=== PATIENT | male | born 1990 | race Caucasian/White ===

== ENCOUNTER 2020-12-05 18:14 | Emergency (ER) | payer OTHER ==
[~2020-12-05] VITALS: Ht 172.7 cm; Wt 106.8 kg
[2020-12-05 19:36] VITALS: BP 123/72
--- NOTE | 2020-12-05 19:44 | NUR ---
Lab bedside for ordered draw. Patient refused labs stating it "made him nauseous" to have labwork done. PER Good informed. Patient declines labs and discharge paperwork is pending now.
== END 2020-12-06 06:50 | disposition home or self-care (01) ==
LOC: ER 18:15
DX: M79.662 Pain in left lower leg (principal); M79.661 Pain in right lower leg
CPT/HCPCS: 99283

== ENCOUNTER 2020-12-08 13:10 | Emergency (ER) | payer OTHER ==
[~2020-12-08] VITALS: Ht 172.7 cm; Wt 120.0 kg
== END 2020-12-08 15:19 | disposition home or self-care (01) ==
LOC: ER 13:11
DX: S62.664A Nondisplaced fracture of distal phalanx of right ring finger, initial encounter for closed fracture (principal); X58.XXXA Exposure to other specified factors, initial encounter; Y93.89 Activity, other specified; Y92.89 Other specified places as the place of occurrence of the external cause; Y99.8 Other external cause status
CPT/HCPCS: 29130; 73140; 99283

== ENCOUNTER 2020-12-16 06:21 | Emergency (ER) | payer MEDICAID ==
[~2020-12-16] VITALS: Ht 172.7 cm; Wt 111.4 kg
--- NOTE | 2020-12-16 06:57 | NUR ---
Cold compress applied to eyes per FAISAL Haji.
--- NOTE | 2020-12-16 07:33 | NUR ---
Pts orbital edema decreasing and able to open eyes since application of cold compress.
[2020-12-16] MEDS ORDERED: normal saline 1000ML IV soln IVB ONE (07:55)
[2020-12-16] MEDS ORDERED: triamcinolone acetonide 40mg/ml inj IM ONE (07:55)
[2020-12-16 09:34] VITALS: BP 112/71
== END 2020-12-16 09:41 | disposition home or self-care (01) ==
LOC: ER 06:22
DX: L25.9 Unspecified contact dermatitis, unspecified cause (principal); Z59.0 Homelessness; Z56.0 Unemployment, unspecified
CPT/HCPCS: 96360; 96372; 99283; J3301; J7030

== ENCOUNTER 2020-12-21 12:01 | Emergency (ER) | payer MEDICAID ==
[~2020-12-21] VITALS: Ht 172.7 cm; Wt 109.0 kg
[~2020-12-21 12:01] MED LIST: HYDR-3686 PO; PERM60CR4 TOP
[2020-12-21 12:26] VITALS: BP 154/111
== END 2020-12-21 14:39 | disposition home or self-care (01) ==
LOC: ER 12:01
DX: B86 Scabies (principal); Z59.0 Homelessness; Z56.0 Unemployment, unspecified; Z79.899 Other long term (current) drug therapy
CPT/HCPCS: 99283

== ENCOUNTER 2020-12-22 20:49 | Emergency (ER) | payer MEDICAID ==
[~2020-12-22] VITALS: Ht 172.7 cm; Wt 109.1 kg
[2020-12-22 21:10] VITALS: BP 150/95
--- NOTE | 2020-12-22 21:24 | NUR ---
PT DECIDED TO STEP OUT OF ROOM INTO HALLWAY AND BEGAN YELLING "YOU MIGHT BE OKAY WITH THIS CURTIS TALKING TO HIMSELF BUT I DONT WANT TO BE LISTENING TO A NIGGER TALKING TO HIMSELF. FUCK THIS PLACE IM GOING TO A NEW ROOM FUCK THIS NIGGER." PT WAS UNABLE TO BE REDIRECTED TO HIS ROOM AND HE ATTEMPTED TO ENTER THE OTHER PT ROOM AND WAS YELLING AT OTHER PT FACE. SECURITY CALLED AND PT WAS ESCORTED OUT OF ED. PT CONTINUED YELLING "IM NOT A RACIST. FUCK THIS AND FUCK THAT NIGGER." HISTOLOGY MANAGER ADEOLA AWARE OF SITUATION
== END 2020-12-22 21:36 | disposition left against medical advice (07) ==
LOC: ER 20:49
DX: M79.605 Pain in left leg (principal); M79.604 Pain in right leg; Z53.21 Procedure and treatment not carried out due to patient leaving prior to being seen by health care provider

== ENCOUNTER 2020-12-23 17:45 | Emergency (ER) | payer MEDICAID ==
[~2020-12-23] VITALS: Ht 172.7 cm; Wt 109.1 kg
[2020-12-23 17:52] VITALS: BP 132/96
== END 2020-12-23 19:10 | disposition home or self-care (01) ==
LOC: ER 17:47
DX: B86 Scabies (principal); Z59.0 Homelessness; Z56.0 Unemployment, unspecified; Z79.899 Other long term (current) drug therapy
CPT/HCPCS: 99281

== ENCOUNTER 2021-03-25 13:35 | Emergency (ER) | payer SELFPAY ==
[~2021-03-25] VITALS: Ht 172.7 cm; Wt 115.6 kg
[~2021-03-25 13:35] MED LIST changes: -HYDR-3686 PO
[2021-03-25 13:55] VITALS: BP 126/83
== END 2021-03-25 17:55 | disposition left against medical advice (07) ==
LOC: ER 13:35
DX: M79.644 Pain in right finger(s) (principal); Z53.21 Procedure and treatment not carried out due to patient leaving prior to being seen by health care provider

== ENCOUNTER 2024-12-09 15:24 | Inpatient (IN) | payer MEDICAID, OTHER ==
[~2024-12-09] VITALS: Ht 170.2 cm; Wt 111.3 kg
[2024-12-10 10:27] VITALS: BP 123/73; PULSE 108; RESP 18; TEMP 98; O2SAT 97
[2024-12-10] MEDS ORDERED: ARIP5TAB12 PO (11:42)
[2024-12-10] MEDS ORDERED: acetaminophen 325mg tablet PO PRN ×2 (11:45)
[2024-12-10] MEDS ORDERED: mag hydrox/Alum hydrox/simeth 30ml oral suspension PO PRN (11:45)
[2024-12-10] MEDS ORDERED: magnesium hydroxide 30ml (MOM) UD suspension PO PRN (11:45)
[2024-12-10] MEDS ORDERED: loperamide 2mg capsule PO PRN (11:45)
[2024-12-10 11:48] VITALS: RESP 18; O2SAT 97
[2024-12-10] MEDS ORDERED: hydrOXYzine 25 MG tablet PO PRN (17:15)
[2024-12-10 19:00] VITALS: RESP 14; O2SAT 96
[2024-12-10 19:21] VITALS: BP 115/71; PULSE 75; RESP 12; TEMP 98.2; O2SAT 96
[2024-12-10] MEDS: aripiprazole 5mg tablet PO SCH (20:31)
[2024-12-10] MEDS: traZODone 50mg tablet PO SCH (20:31)
[2024-12-11 07:37] VITALS: BP 117/65; PULSE 66; RESP 14; TEMP 98.8; O2SAT 98
[2024-12-11 09:08] VITALS: RESP 14; O2SAT 98
[2024-12-11 19:00] VITALS: RESP 20; O2SAT 96
[2024-12-11 20:00] VITALS: BP 114/68; PULSE 69; RESP 20; TEMP 98.4; O2SAT 96
[2024-12-11] MEDS: aripiprazole 5mg tablet PO SCH (20:06)
[2024-12-12 07:30] VITALS: BP 114/68; PULSE 71; RESP 16; TEMP 97.9; O2SAT 96
[2024-12-12 19:00] VITALS: RESP 15; O2SAT 97
[2024-12-12 19:20] VITALS: BP 114/69; PULSE 72; RESP 15; TEMP 98.8; O2SAT 97
[2024-12-12] MEDS: aripiprazole 5mg tablet PO SCH (21:35)
[2024-12-13 07:30] VITALS: BP 119/71; PULSE 60; RESP 16; TEMP 97.6; O2SAT 97; O2SAT 99
[2024-12-13 19:06] VITALS: BP 116/72; PULSE 71; RESP 18; TEMP 98.1; O2SAT 97
[2024-12-13 20:00] VITALS: RESP 18; O2SAT 97
[2024-12-14 07:00] VITALS: BP 129/87; PULSE 96; RESP 16; TEMP 97.1; O2SAT 97
[2024-12-14] MEDS ORDERED: aripiprazole 400mg suspension ER syringe IM ONE (14:00)
[2024-12-14 19:00] VITALS: RESP 18; O2SAT 95
[2024-12-14 19:36] VITALS: BP 121/74; PULSE 72; RESP 18; TEMP 97.8; O2SAT 95
[2024-12-15 07:00] VITALS: RESP 17; O2SAT 96
[2024-12-15 07:38] VITALS: BP 101/62; PULSE 69; RESP 17; TEMP 98.3; O2SAT 96
[2024-12-15 19:00] VITALS: RESP 16; O2SAT 76
[2024-12-15 20:00] VITALS: BP 121/76; PULSE 76; RESP 16; TEMP 98; O2SAT 96
[2024-12-16 07:30] VITALS: BP 119/76; PULSE 90; RESP 16; TEMP 98.4; O2SAT 97
[2024-12-16 08:52] VITALS: RESP 16; O2SAT 97
[2024-12-16] MEDS: ARIPIPRAZOLE IM ONE (12:55)
[2024-12-16 19:00] VITALS: RESP 18; O2SAT 98
[2024-12-16 19:58] VITALS: BP 102/69; PULSE 80; RESP 18; TEMP 98.5; O2SAT 98
[2024-12-17 07:30] VITALS: BP 116/70; PULSE 100; RESP 14; TEMP 98.5; O2SAT 93
[2024-12-17 19:00] VITALS: RESP 15; O2SAT 95
[2024-12-17 19:32] VITALS: BP 136/83; PULSE 104; RESP 15; TEMP 98.4; O2SAT 95
[2024-12-18 07:30] VITALS: BP 113/79; PULSE 85; RESP 18; TEMP 98.3; O2SAT 96
[2024-12-18] MEDS ORDERED: ARIP5TAB53 PO (13:21)
[2024-12-18] MEDS ORDERED: ARIPIPRAZOLE IM ONE (16:55)
[2024-12-18 19:00] VITALS: RESP 16; O2SAT 97
[2024-12-18 20:00] VITALS: BP 119/83; PULSE 79; RESP 16; TEMP 98.5; O2SAT 97
[2024-12-19 07:30] VITALS: BP 125/78; PULSE 92; RESP 16; TEMP 97.5; O2SAT 96
== END 2024-12-19 16:01 | disposition home or self-care (01) | DRG 750 ==
LOC: ADULT MH 12-10 10:28
PROVIDERS: ADMIT Psychiatry & Neurology Psychiatry; ATTEND Psychiatry & Neurology Psychiatry
PROC: GZHZZZZ Group Psychotherapy (ICD-10-PCS; principal; 2024-12-10)
PROC: GZ51ZZZ Individual Psychotherapy, Behavioral (ICD-10-PCS; 2024-12-10)
DX: F20.9 Schizophrenia, unspecified (principal); R45.851 Suicidal ideations; Z91.148 Patient's other noncompliance with medication regimen for other reason; F32.A Depression, unspecified; F41.9 Anxiety disorder, unspecified; Z59.00 Homelessness unspecified
CPT/HCPCS: 87081

== ENCOUNTER 2025-01-21 05:40 | Emergency (ER) | payer MEDICAID ==
[~2025-01-21] VITALS: Ht 172.7 cm; Wt 90.9 kg
[~2025-01-21 05:40] MED LIST changes: +ARIP5TAB53 PO; -PERM60CR4 TOP
[2025-01-21] MEDS ORDERED: PERM60CR4 TOP (06:55)
[2025-01-21 07:11] VITALS: BP 110/78; PULSE 72; RESP 16; TEMP 97.8; O2SAT 97
== END 2025-01-21 07:13 | disposition home or self-care (01) ==
LOC: ER 05:41
DX: B86 Scabies (principal); F20.9 Schizophrenia, unspecified
CPT/HCPCS: 99282

== ENCOUNTER 2025-02-09 09:49 | Emergency (ER) | payer MEDICAID ==
[~2025-02-09] VITALS: Ht 167.6 cm; Wt 113.8 kg
[~2025-02-09 09:49] MED LIST changes: +PERM60CR4 TOP
[2025-02-09 09:56] VITALS: TEMP 98.4
[2025-02-09 12:28] LABS: BASOPHILS # (AUTO) 0.1 X10'3 (0-0.2); BASOPHILS % (AUTO) 0.8 % (0-1); EOSINOPHILS # (AUTO) 0.1 X10'3 (0-0.9); EOSINOPHILS % (AUTO) 1.3 % (0-6); HEMATOCRIT 43.7 % (42.0-52.0); HEMOGLOBIN 15.2 g/dl (14.0-17.9); LYMPHOCYTES # (AUTO) 1.9 X10'3 (1.1-4.8); MEAN CORPUSCULAR HEMOGLOBIN 30.3 PG (27.0-31.0); MEAN CORPUSCULAR HGB CONC 34.7 g/dL (33.0-36.5); MEAN CORPUSCULAR VOLUME 87.3 FL (78-98); MEAN PLATELET VOLUME 10.1 FL (7.4-10.4); MONOCYTES # (AUTO) 0.4 X10'3 (0-0.9); MONOCYTES % (AUTO) 6.2 % (2-12); NEUTROPHILS # (AUTO) 4.5 X10'3 (1.8-7.7); NEUTROPHILS % (AUTO) 64.7 % (42-75); PLATELET COUNT 198 X10'3 (140-440); RED CELL DISTRIBUTION WIDTH 13.3 % (11.5-14.5)
[2025-02-09 12:43] LABS: ALBUMIN 3.8 G/DL (3.4-5.0); ANION GAP 7 (8-16); BLOOD UREA NITROGEN 12 MG/DL (7-18); CALCIUM 8.9 MG/DL (8.5-10.1); CHLORIDE 107 MMOL/L (99-107); ETHANOL < 10 MG/DL (<10); GLUCOSE 119 MG/DL (70-104); POTASSIUM 3.7 MMOL/L (3.5-5.1); SODIUM 143 MMOL/L (135-145); THYROID STIMULATING HORMONE 1.75 ulU/ml (0.34-4.50); eCRCL 119 ML/MIN; eGFR > 90 ML/MIN
[2025-02-09 13:36] LABS: BILIRUBIN,URINE NEGATIVE (Neg); CLARITY,URINE CLEAR (Clear); COLOR,URINE YELLOW (Yellow); GLUCOSE, URINE NEGATIVE (Neg); KETONES,URINE NEGATIVE (Neg); LEUKOCYTE ESTERASE ,URINE NEGATIVE (Neg); NITRITES, URINE NEGATIVE (Neg); OCCULT BLOOD,URINE NEGATIVE (Neg); PROTEIN,URINE NEGATIVE (Neg); UROBILINOGEN,URINE 0.2 E.U/dL (0.2-1.0)
[2025-02-09 13:37] LABS: UA COLLECTION TYPE CLN CATCH MIDSTREAM
[2025-02-09 13:43] LABS: URINE AMPHETAMINE SCREEN NEGATIVE (Neg); URINE BARBITUATE SCREEN NEGATIVE (Neg); URINE BENZODIAZEPINES SCREEN NEGATIVE (Neg); URINE CANNABINOID SCREEN NEGATIVE (Neg); URINE COCAINE SCREEN NEGATIVE (Neg); URINE METHADONE SCREEN NEGATIVE (Neg); URINE OPIATE SCREEN NEGATIVE (Neg); URINE PHENCYCLIDINE SCREEN NEGATIVE (Neg)
[2025-02-09] MEDS: aripiprazole 400mg suspension ER syringe IM STA (13:45)
[2025-02-09 15:10] VITALS: BP 135/84; PULSE 86; RESP 16; O2SAT 98
== END 2025-02-09 15:10 | disposition home or self-care (01) ==
LOC: ER 09:50
DX: F20.9 Schizophrenia, unspecified (principal); R45.851 Suicidal ideations; Z59.00 Homelessness unspecified; Z20.822 Contact with and (suspected) exposure to COVID-19
CPT/HCPCS: 36415; 80048; 80305; 80320; 81003; 84443; 85025; 87811; 96372; 99284

== ENCOUNTER 2025-02-27 08:39 | Emergency (ER) | payer MEDICAID ==
[~2025-02-27] VITALS: Ht 167.6 cm; Wt 113.7 kg
[2025-02-27 08:40] VITALS: BP 121/70; PULSE 85; TEMP 98.2; O2SAT 98
[2025-02-27 08:51] VITALS: RESP 18
--- NOTE | 2025-02-27 09:18 | Physician Documentation ---
History of Present Illness ~ Chief Complaint: Suicidal Ideation Stated Complaint: Time Seen by MD: 08:55 Primary Medical Doctor: NONE Mode of Arrival: POV HPI This 34-year-old male with history schizophrenia presents due to suicidal thoughts without a plan or intention on acting on these feelings, patient reports that he normally has an Abilify injection monthly however he does not know when his last injection was and believes he is overdue. Medication Reconciliation Allergies: Coded Allergies: No Known Allergies (Unverified , 02/09/25) Scheduled Aripiprazole (Aripiprazole), 15 MG PO HS Permethrin (Permethrin), 1 APPLIC TOP ONCE Past Medical History Past Medical History: No Pertinent History Past Surgical History: noncontributory Patient History: Patient reports no known family medical history. Alcohol Use: None Drug Use: none Lives In: Homeless Occupation: unemployed Review of Systems ROS Suicidal ideation as stated above in the HPI, otherwise all systems are reviewed and negative. Physical Exam Vital Signs: Temperature: 98.2, Source: Oral, Heart Rate: 85, Respiratory Rate: 18, BP: 121/70, Pulse Oximetry: 98, Weight: 113.700 Oxygen Flow Rate: 0 Physical Exam VITALS: Reviewed and as above. GENERAL: Alert and oriented, nontoxic appearing, no apparent distress. HEENT: Normocephalic, atraumatic, PERRL, EOMI, moist mucosa, no erythema RESPIRATORY: Lungs clear, normal breath sounds, no respiratory distress. CHEST: No accessory muscle use, no retractions CV: Regular rate, rhythm, no murmur GI: Soft, non-tender, bowels sounds present, no rebound, guarding, or rigidity BACK: No CVA tendernes MUSCULOSKELETAL No deformities, no tenderness to palpation SKIN: Warm and dry, no rash PSYCH: Flat mood and affect, no agitation Progress Results/Orders Results/Orders Orders - MARIBEL MAYA Med Rec (02/27/25 09:11) 1799.11 (02/27/25 09:11) Close Observation Level (02/27/25 09:11) Covid19 Binax Poc Result Entry (02/27/25 09:11) Regular Diet (02/27/25 Lunch) Completed Orders - MARIBEL MAYA Cbc/Diff (02/27/25 09:11) Urinalysis (02/27/25 09:11) Drug Screen, Urine (02/27/25 09:11) Ethanol (02/27/25 09:11) BMP (02/27/25 09:11) TSH (02/27/25 09:18) Vital Signs 02/27/25 02/27/25 08:40 08:51 Temp 98.2 Pulse 85 Resp 16 18 B/P (MAP) 121/70 Pulse Ox 98 O2 Flow Rate 0 Laboratory Tests Test 02/27/25 09:18 02/27/25 09:27 02/27/25 09:31 White Blood Count 5.5 Red Blood Count 5.18 Hemoglobin 15.6 Hematocrit 44.9 Mean Corpuscular Volume 86.6 Mean Corpuscular Hemoglobin 30.1 Mean Corpuscular Hemoglobin Concent 34.7 Red Cell Distribution Width 13.6 Platelet Count 166 Mean Platelet Volume 10.5 H Neutrophils (%) (Auto) 62.8 Lymphocytes (%) (Auto) 29.7 Monocytes (%) (Auto) 5.2 Eosinophils (%) (Auto) 1.2 Basophils (%) (Auto) 1.1 H Neutrophils # (Auto) 3.5 Lymphocytes # (Auto) 1.6 Monocytes # (Auto) 0.3 Eosinophils # (Auto) 0.1 Basophils # (Auto) 0.1 CBC Comment Sodium Level 141 Potassium Level 3.8 Chloride Level 107 Carbon Dioxide Level 29.2 Anion Gap 5 L Blood Urea Nitrogen 12 Creatinine 0.80 Estimated GFR/1.73 m2 > 90 BUN/Creatinine Ratio 15.0 Glucose Level 148 H Calcium Level 8.9 Albumin 3.8 Thyroid Stimulating Hormone (TSH) 0.85 Chemistry Comments Ethyl Alcohol Level < 10 SARS-CoV-2 Antigen (Rapid) Negative Urine Specimen Description Cln catch midstream Urine Color Yellow Urine Clarity Clear Urine pH 6.0 Urine Specific [place] 1.010 Urine Protein Negative Urine Glucose (UA) Negative Urine Ketones Negative Urine Occult Blood Negative Urine Nitrite Negative Urine Bilirubin Negative Urine Urobilinogen 0.2 Urine Leukocyte Esterase Negative Volume Urine Centrifuged 10 ml Urine Comment Urine Opiates Screen Negative Urine Methadone Screen Negative Urine Fentanyl Screen Negative Urine Barbiturates Screen Negative Urine Phencyclidine Screen Negative Urine Amphetamines Screen Negative Urine Benzodiazepines Screen Negative Urine Cocaine Screen Negative Urine Cannabinoids Screen Negative Drug Screen Comment Medical Decision Making Findings This 34-year-old male with history schizophrenia presented with suicidal thoughts without voiced intention or plan to act on these feelings, patient reports no physical symptoms or acute medical concerns. Patient is otherwise well-appearing and had benign physical exam, vital signs stable. Due to patient's mental health history and voiced suicidal thoughts he was placed on a 1798 mental health hold. At This time I do not believe an acute medical condition exists that would preclude mental health transfer. Transfer orders for [facility]: At this time there is no evidence of an emergent medical condition that would preclude (admission/transfer) to a psychiatric unit via [facility] protocol for further psychiatric, as well as medical evaluation and treatment. At this time I have no reason to believe that transfer via [facility] protocol would have serious medical compromise in the patient's health. Differential Dx:Considerations: Include: Anxiety, Bipolar disorder, Conversion disorder, Depression, Homicidal, Personality disorder, Schizophrenia, Substance abuse Departure Disposition: [address] [place] [address] Impression: Primary Impression: Suicidal ideation Condition: Guarded Discharge Instructions: Suicidal Feelings: How to Help Yourself Additional Instructions: Transfer orders for [facility]: At this time there is no evidence of an emergent medical condition that would preclude (admission/transfer) to a psychiatric unit via [facility] protocol for further psychiatric, as well as medical evaluation and treatment. At this time I have no reason to believe that transfer via [facility] protocol would have serious medical compromise in the patient's health. Please follow up with your primary care provider in the next few days. Please return to the emergency department for any new or worsening concerning symptoms. Referrals: NO PRIMARY CARE PROVIDER (PCP) Education Educated: Patient Educated regarding: diagnosis, treatment, prognosis, need for follow up Signature Scribe Signature: No scribe Attestation: The note accurately reflects work and decisions made by me.DEBBIE Gibbons 02/27/25 19:43 MARIBEL MAYA February 27, 2025 09:18
[2025-02-27 09:46] LABS: BILIRUBIN,URINE NEGATIVE (Neg); CLARITY,URINE CLEAR (Clear); COLOR,URINE YELLOW (Yellow); GLUCOSE, URINE NEGATIVE (Neg); KETONES,URINE NEGATIVE (Neg); LEUKOCYTE ESTERASE ,URINE NEGATIVE (Neg); NITRITES, URINE NEGATIVE (Neg); OCCULT BLOOD,URINE NEGATIVE (Neg); PROTEIN,URINE NEGATIVE (Neg); UROBILINOGEN,URINE 0.2 E.U/dL (0.2-1.0)
[2025-02-27 09:47] LABS: UA COLLECTION TYPE CLN CATCH MIDSTREAM
[2025-02-27 09:50] LABS: BASOPHILS # (AUTO) 0.1 X10'3 (0-0.2); BASOPHILS % (AUTO) 1.1 % (0-1); EOSINOPHILS # (AUTO) 0.1 X10'3 (0-0.9); EOSINOPHILS % (AUTO) 1.2 % (0-6); HEMATOCRIT 44.9 % (42.0-52.0); HEMOGLOBIN 15.6 g/dl (14.0-17.9); LYMPHOCYTES # (AUTO) 1.6 X10'3 (1.1-4.8); LYMPHOCYTES % (AUTO) 29.7 % (21-51); MEAN CORPUSCULAR HEMOGLOBIN 30.1 PG (27.0-31.0); MEAN CORPUSCULAR HGB CONC 34.7 g/dL (33.0-36.5); MEAN CORPUSCULAR VOLUME 86.6 FL (78-98); MEAN PLATELET VOLUME 10.5 FL (7.4-10.4); MONOCYTES # (AUTO) 0.3 X10'3 (0-0.9); MONOCYTES % (AUTO) 5.2 % (2-12); NEUTROPHILS # (AUTO) 3.5 X10'3 (1.8-7.7); NEUTROPHILS % (AUTO) 62.8 % (42-75); PLATELET COUNT 166 X10'3 (140-440); RED BLOOD COUNT 5.18 X10'6 (4.70-6.10); RED CELL DISTRIBUTION WIDTH 13.6 % (11.5-14.5); WHITE BLOOD COUNT 5.5 X10'3 (4.5-11.0)
[2025-02-27 09:53] LABS: ALBUMIN 3.8 G/DL (3.4-5.0); ANION GAP 5 (8-16); BLOOD UREA NITROGEN 12 MG/DL (7-18); CALCIUM 8.9 MG/DL (8.5-10.1); CHLORIDE 107 MMOL/L (99-107); GLUCOSE 148 MG/DL (70-104); POTASSIUM 3.8 MMOL/L (3.5-5.1); SODIUM 141 MMOL/L (135-145); TOTAL CARBON DIOXIDE 29.2 MMOL/L (24-32); eCRCL 119 ML/MIN; eGFR > 90 ML/MIN
[2025-02-27 09:57] LABS: URINE AMPHETAMINE SCREEN NEGATIVE (Neg); URINE BARBITUATE SCREEN NEGATIVE (Neg); URINE BENZODIAZEPINES SCREEN NEGATIVE (Neg); URINE CANNABINOID SCREEN NEGATIVE (Neg); URINE COCAINE SCREEN NEGATIVE (Neg); URINE METHADONE SCREEN NEGATIVE (Neg); URINE OPIATE SCREEN NEGATIVE (Neg); URINE PHENCYCLIDINE SCREEN NEGATIVE (Neg)
[2025-02-27 09:59] LABS: ETHANOL < 10 MG/DL (<10)
[2025-02-27 16:24] LABS: THYROID STIMULATING HORMONE 0.85 ulU/ml (0.34-4.50)
== END 2025-02-27 20:04 ==
LOC: ER 08:40
DX: R45.851 Suicidal ideations (principal); F20.9 Schizophrenia, unspecified; Z59.00 Homelessness unspecified; Z56.0 Unemployment, unspecified; Z79.899 Other long term (current) drug therapy; Z20.822 Contact with and (suspected) exposure to COVID-19
CPT/HCPCS: 36415; 80048; 80305; 80320; 81003; 84443; 85025; 87811; 99285; A6449